=== PATIENT | female | born 1985 | race Caucasian/White ===

== ENCOUNTER 2017-07-23 22:44 | Emergency (ER) | payer OTHER ==
[~2017-07-23] VITALS: Ht 165.1 cm; Wt 81.2 kg
[2017-07-23] MEDS ORDERED: IBUP600 PO (22:59)
[2017-07-23] MEDS ORDERED: CLIN300 (22:59)
[2017-07-24] MEDS ORDERED: Flonase 0.05% N16 GM (00:27)
[2017-07-24] MEDS ORDERED: ALBU90OI INH (00:27)
[2017-07-24] MEDS ORDERED: BENZ100A PO (00:36)
== END 2017-07-24 00:45 | disposition home or self-care (01) ==
LOC: ER 22:44
DX: J45.909 Unspecified asthma, uncomplicated (principal); F17.210 Nicotine dependence, cigarettes, uncomplicated
CPT/HCPCS: 71046; 94640; 99284

== ENCOUNTER → 2025-03-15 | Outpatient (CLI) | payer OTHER ==
[~2025-03-15] MED LIST: ALBU90OI INH; BENZ100A PO; CLIN300; Flonase 0.05% N16 GM; IBUP600 PO
[2025-03-16 10:49] LABS: Chlamydia Trachomatis Throat NOT DETECTED (NOT DETECT); Neisseria Gonorrhoea Throat NOT DETECTED (NOT DETECT)
== END | disposition home or self-care (01) ==
LOC: LAB 19:23 → LAB SHORT 19:23
PROVIDERS: Physician Assistant Medical
DX: J03.90 Acute tonsillitis, unspecified (principal)
CPT/HCPCS: 87081; 87491; 87591